=== PATIENT | female | born 1960 | race Caucasian/White ===

== ENCOUNTER 2023-05-20 05:27 | Inpatient (IN) | payer OTHER ==
[~2023-05-20] VITALS: Ht 154.9 cm; Wt 127.3 kg
[~2023-05-20 05:27] MED LIST: GABA-1181 PO; HYDR-4769 PO; LEVO125 PO
[2023-05-20] MEDS ORDERED: RINGERS SOLUTION,LACTATED 1,000 ML IV ONE ×2 (05:30→07:08)
[2023-05-20] MEDS ORDERED: RINGERS SOLUTION,LACTATED 0 ML IV ONE (05:37)
[2023-05-20] MEDS ORDERED: MUPIROCIN CALCIUM 2% 22 GM OINTMENT ONE (05:40)
[2023-05-20] MEDS ORDERED: VANCOMYCIN HCL 1 GM/VIAL ONE (05:40)
[2023-05-20] MEDS ORDERED: BUPIVACAINE HCL/PF 0.5% 30 ML VIAL ONE (05:41)
[2023-05-20] MEDS ORDERED: CeFAZolin 2 GM/DEXTROSE 50 ML IV ONE ×2 (05:42→07:00)
[2023-05-20] MEDS ORDERED: CHLORHEXIDINE GLUCONATE 2% TOWELETTE [2'S/6'S] TP ONE (05:45)
[2023-05-20] MEDS ORDERED: ETHYL ALCOHOL 62% ANTISEPTIC NASAL SANITIZER 0.6 ML AMPUL NASAL ONE (05:45)
[2023-05-20] MEDS ORDERED: FLUT12AE20 IH (06:02)
[2023-05-20 06:44] LABS: BASOPHILS % (AUTO) 0.7 % (0.0-2.0); EOSINOPHILS % (AUTO) 2.6 % (1.0-6.0); HEMATOCRIT 42.1 % (36-46); HEMOGLOBIN 14.2 g/dL (12.0-16.0); LYMPHOCYTES # (AUTO) 1.6 K/uL (1.0-4.8); LYMPHOCYTES % (AUTO) 28.4 % (22.0-44.0); MEAN CORPUSCULAR HEMOGLOBIN 29.6 pg (26.0-34.0); MEAN CORPUSCULAR HGB CONC 33.7 G/dL (31.0-37.0); MEAN CORPUSCULAR VOLUME 88 fL (80-100); MONOCYTES # (AUTO) 0.5 K/uL (0.1-1.0); MONOCYTES % (AUTO) 9.5 % (2.0-9.0); NEUTROPHILS # (AUTO) 3.3 K/uL (1.8-7.7); NEUTROPHILS % (AUTO) 58.8 % (40.0-70.0); PLATELET COUNT (AUTO) 158 K/uL (150-450); RED BLOOD CELL COUNT(AUTO) 4.78 MIL/uL (4.00-5.20); RED CELL DISTRIBUTION WIDTH 14.8 % (11.5-14.5); WHITE BLOOD COUNT (AUTO) 5.7 K/uL (4.5-11.0)
[2023-05-20 07:02] LABS: ANION GAP 5 mmol/L (8-16); CALCIUM, TOTAL 8.8 mg/dL (8.8-10.5); CARBON DIOXIDE 30 mmol/L (22-29); CHLORIDE 108 mmol/L (98-107); CREATININE 0.55 mg/dL (0.60-1.30); GLOMERULAR FILTR. RATE CALC > 60 mL/min (>60); GLUCOSE,RANDOM 101 mg/dL (70-110); POTASSIUM 4.5 mmol/L (3.5-5.1); PROTHROMBIN TIME 10.2 SEC (9.4-11.6); SODIUM SERUM 143 mmol/L (136-145); UREA NITROGEN, BLOOD 17 mg/dL (7-18)
[2023-05-20] MEDS ORDERED: CYCLOBENZAPRINE HCL 10 MG TABLET PO PRN (07:15)
[2023-05-20] MEDS ORDERED: BUPIVACAINE LIPOSOME/PF 1.3%-13.3MG/ML SUSPENSION 20 ML VIAL INJ ONE (07:15)
[2023-05-20] MEDS ORDERED: FLUTICASONE PROPIONATE HFA 110 MCG/PUFF 12 GM INHALER IH ONE (07:15)
[2023-05-20] MEDS ORDERED: OxyCODONE HCL 5 MG IR TABLET PO PRN (07:19)
[2023-05-20] MEDS: GABAPENTIN 300 MG CAPSULE PO SCH ×3 (07:30→20:15)
[2023-05-20] MEDS ORDERED: MEPERIDINE-PF 25 MG/ML VIAL IVP PRN (08:45)
[2023-05-20] MEDS ORDERED: ONDANSETRON HCL 4 MG/2 ML VIAL IVP PRN ×2 (10:30→14:30)
[2023-05-20] MEDS ORDERED: HYDROmorphone HCL 2 MG/ML SYRINGE IVP PRN (10:30)
[2023-05-20] MEDS ORDERED: FentaNYL CITRATE PF 100 MCG/2 ML VIAL ONE (11:35)
[2023-05-20] MEDS: FentaNYL CITRATE PF 100 MCG/2 ML VIAL IVP PRN ×2 (11:38→12:01)
[2023-05-20] MEDS ORDERED: CeFAZolin SODIUM 1 GM VIAL IVP ONE (12:00)
[2023-05-20] MEDS ORDERED: PROPOFOL 1% 20 ML VIAL IVP ONE (12:00)
[2023-05-20] MEDS ORDERED: ONDANSETRON HCL 4 MG/2 ML VIAL IVP ONE (12:00)
[2023-05-20] MEDS ORDERED: HYDROmorphone HCL 2 MG/ML SYRINGE IVP ONE (12:00)
[2023-05-20] MEDS ORDERED: 0.9% SODIUM CHLORIDE 10 ML VIAL IVP ONE (12:00)
[2023-05-20] MEDS ORDERED: ROCURONIUM BROMIDE 10 MG/ML 5 ML VIAL IVP ONE (12:00)
[2023-05-20] MEDS ORDERED: ACETAMINOPHEN/ISO-OSM 1000 MG/100 ML BOTTLE IV ONE (12:00)
[2023-05-20] MEDS ORDERED: FentaNYL CITRATE PF 100 MCG/2 ML VIAL IVP ONE (12:00)
[2023-05-20] MEDS ORDERED: PROPOFOL 1% ISO-OSM 1000 MG/100 ML BOTTLE IV ONE (12:00)
[2023-05-20] MEDS ORDERED: KETAMINE HCL 50 MG/ML 10 ML VIAL IVP ONE (12:00)
[2023-05-20] MEDS ORDERED: LIDOCAINE/PF 2% 5 ML VIAL IM ONE (12:00)
[2023-05-20] MEDS ORDERED: SUGAMMADEX SODIUM 200 MG/2 ML VIAL IVP ONE (12:00)
[2023-05-20] MEDS ORDERED: EPHEDrine SULFATE 50 MG/ML VIAL IM ONE (12:00)
[2023-05-20] MEDS ORDERED: MIDAZOLAM HCL 2 MG/2 ML VIAL IVP ONE (12:00)
[2023-05-20] MEDS ORDERED: HYDROmorphone HCL 2 MG/ML SYRINGE ONE (12:20)
[2023-05-20] MEDS: HYDROmorphone HCL 2 MG/ML SYRINGE IVP PRN ×5 (12:26→19:59)
[2023-05-20 13:50] VITALS: BP 133/69; PULSE 73; RESP 17; TEMP 97.5; O2SAT 91
[2023-05-20] MEDS ORDERED: SODIUM CHLORIDE 0.9% 500 ML IV ONE (14:03)
[2023-05-20] MEDS ORDERED: IPRATROPIUM BROMIDE 0.5 MG/2.5 ML NEB SOLUTION NEB PRN (14:30)
[2023-05-20] MEDS ORDERED: [UNRECOGNIZED DRUG - OTHER] PO SCH (14:30)
[2023-05-20] MEDS ORDERED: MAGNESIUM HYDROXIDE SUSPENSION 30 ML UDCUP PO PRN (14:30)
[2023-05-20] MEDS ORDERED: BISACODYL 10 MG RECTAL RECTAL SUPPOSITORY PR PRN (14:30)
[2023-05-20] MEDS ORDERED: ALBUTEROL SULFATE 2.5 MG/0.5 ML NEB SOLUTION NEB PRN (14:30)
[2023-05-20] MEDS ORDERED: ACETAMINOPHEN 325 MG TABLET PO PRN (14:30)
[2023-05-20] MEDS ORDERED: ZOLPIDEM TARTRATE 5 MG TABLET PO PRN (14:30)
[2023-05-20] MEDS: OxyCODONE HCL 10 MG IR TABLET PO PRN ×2 (14:42→18:34)
[2023-05-20] MEDS: ACETAMINOPHEN 1000 MG/ISO-OSM 100 ML IV SCH ×3 (14:43→20:31)
[2023-05-20] MEDS ORDERED: GABAPENTIN 300 MG CAPSULE PO SCH (16:00)
[2023-05-20 16:11] VITALS: O2SAT 94
[2023-05-20] MEDS ORDERED: OXYGEN THERAPY IH SCH (20:00)
[2023-05-20 20:09] VITALS: BP 106/62; PULSE 76; RESP 18; TEMP 97.5; O2SAT 94
[2023-05-20] MEDS: FLUTICASONE PROPIONATE HFA 220 MCG/PUFF 12 GM INHR IH SCH (20:15)
[2023-05-20] MEDS: DOCUSATE SODIUM 100 MG CAPSULE PO SCH (20:19)
[2023-05-20 22:45] VITALS: BP 130/69; PULSE 74; RESP 20; TEMP 98.4; O2SAT 94
[2023-05-21] MEDS ORDERED: SODIUM CHLORIDE 0.9% 250 ML IV ONE (01:52)
[2023-05-21] MEDS: ACETAMINOPHEN 1000 MG/ISO-OSM 100 ML IV SCH (02:30)
[2023-05-21 04:28] VITALS: BP 128/66; PULSE 81; RESP 18; TEMP 97.5; O2SAT 95
[2023-05-21] MEDS ORDERED: LEVOTHYROXINE SODIUM 125 MCG TABLET PO SCH (06:30)
[2023-05-21] MEDS ORDERED: OxyCODONE HCL 5 MG IR TABLET PO ONE (07:45)
[2023-05-21] MEDS: GABAPENTIN 300 MG CAPSULE PO SCH (08:09)
[2023-05-21] MEDS: DOCUSATE SODIUM 100 MG CAPSULE PO SCH (09:00)
[2023-05-21] MEDS: FLUTICASONE PROPIONATE HFA 220 MCG/PUFF 12 GM INHR IH SCH (09:00)
[2023-05-21] MEDS ORDERED: PANTOPRAZOLE SODIUM 40 MG DR TABLET PO SCH (09:00)
[2023-05-21] MEDS ORDERED: HYDROCODONE/ACETAMINOPHEN 10-325 MG TABLET PO PRN (13:00)
== END 2023-05-21 08:45 | disposition home or self-care (01) | DRG 519 ==
LOC: 6S 05:27
PROVIDERS: ADMIT Neurological Surgery; ATTEND Neurological Surgery
PROC: 01NB0ZZ Release Lumbar Nerve, Open Approach (ICD-10-PCS; 2023-05-20)
PROC: 00NY0ZZ Release Lumbar Spinal Cord, Open Approach (ICD-10-PCS; principal; 2023-05-20 08:15)
DX: M48.061 Spinal stenosis, lumbar region without neurogenic claudication (principal); Z68.43 Body mass index [BMI] 50.0-59.9, adult; J45.909 Unspecified asthma, uncomplicated; E78.5 Hyperlipidemia, unspecified; E66.01 Morbid (severe) obesity due to excess calories; M72.2 Plantar fascial fibromatosis; M72.9 Fibroblastic disorder, unspecified; M19.90 Unspecified osteoarthritis, unspecified site; Z79.899 Other long term (current) drug therapy
CPT/HCPCS: 72020; 80048; 85025; 85610; 85730; 87081; C9290; J0131; J0690; J1170; J2250; J2405; J2704; J3010; J3370; J3490; J3535; J7040; J7050; J7120; Q9967